=== PATIENT | male | born 1975 | race Caucasian/White ===

== ENCOUNTER 2022-01-08 10:57 | Inpatient (IN) | payer BC ==
[2022-01-08] MEDS ORDERED: LABETALOL 5 MG/ML VIAL MDV IVP STA (11:30)
[2022-01-08 12:16] LABS: Basophils # (A) 0.1 k/uL (0-0.2); Basophils % (A) 1 %; Eosinophils # (A) 0.1 k/uL (0-0.7); Eosinophils % (A) 1 %; HCT 43.9 % (39.0-53.0); HGB 13.7 gm/dL (13.0-17.5); Hypochromasia Moderate; Lymphocytes # (A) 0.8 k/uL (1.0-4.8); Lymphocytes % (A) 7 %; MCH 29.4 pg (25.0-35.0); MCHC 31.2 g/dL (31.0-37.0); MCV 94.2 fL (80.0-100.0); Monocytes # (A) 0.7 k/uL (0-1.0); Monocytes % (A) 6 %; Neutrophils # (A) 10.5 k/uL (1.3-7.7); Neutrophils % (A) 85 %; Platelet Count 378 k/uL (150-450); RBC 4.67 m/uL (4.30-5.90); RDW 14.8 % (11.5-15.5); WBC 12.4 k/uL (3.8-10.6)
[2022-01-08 12:27] LABS: INR 1.3 (<1.2); Partial Thromboplastin Time 22.2 sec (22.0-30.0); Prothrombin Time 13.5 sec (9.0-12.0)
[2022-01-08 12:28] LABS: Albumin 3.6 g/dL (3.5-5.0); Calcium 8.7 mg/dL (8.4-10.2); Potassium 4.3 mmol/L (3.5-5.1); Total Bilirubin 1.8 mg/dL (0.2-1.3); Total Protein 6.3 g/dL (6.3-8.2)
[2022-01-08 13:06] LABS: Appearance,Urine Clear (Clear); Bilirubin,Urine Negative (Negative); Blood,Urine Trace (Negative); Color,Urine Yellow; Glucose,Urine (UA) Negative (Negative); Granular Casts,Urine 1 /lpf (0); Hyaline Casts,Urine 16 /lpf (0-2); Ketones,Urine Negative (Negative); Leukocyte Esterase,Urine Negative (Negative); Mucus,Urine Rare /hpf; Nitrite,Urine Negative (Negative); Protein,Urine 3+ (Negative); RBC,Urine 1 /hpf (0-5); Specific Gravity,Urine 1.015 (1.001-1.035); Squamous Epithelial Cell,Urine <1 /hpf (0-4); Urobilinogen,Urine <2.0 mg/dL (<2.0); WBC,Urine 2 /hpf (0-5)
--- NOTE | 2022-01-08 13:25 | ED ---
General Adult HPI - General Chief complaint: Abdominal Pain Stated complaint: ABD pain SOB Time Seen by Provider: 01/08/22 11:06 Source: patient, RN notes reviewed Mode of arrival: ambulatory Limitations: no limitations - History of Present Illness Initial comments: 46-year-old male presents emergency Department with chief complaint increase abdominal pain. Patient states hishas abdominal bloating, distention and pain. He states worse when he stands up and moves. He states is no pain at rest patient noted have hypertension states she does have a history has not been medications in over 5 years. He states he does have some shortness of breath, m ild chest discomfort. Denies any change of bowel habits including diarrhea, constipation, melena, galdamez stools, dysuria, hematuria. - Related Data Allergies Allergy/AdvReac Type Severity Reaction Status Date / Time No Known Allergies Allergy Verified 01/08/22 11:02 Review of Systems ROS Statement: Those systems with pertinent positive or pertinent negative responses have been documented in the HPI. ROS Other: All systems not noted in ROS Statement are negative. Past Medical History Past Medical History: No Reported History History of Any Multi-Drug Resistant Organisms: None Reported Past Surgical History: No Surgical Hx Reported Past Psychological History: No Psychological Hx Reported Smoking Status: Former smoker Past Alcohol Use History: Occasional Past Drug Use History: None Reported General Exam Limitations: no limitations General appearance: alert, in no apparent distress Head exam: Present: atraumatic, normocephalic, normal inspection Eye exam: Present: normal appearance, PERRL, EOMI. Absent: scleral icterus, conjunctival injection, periorbital swelling ENT exam: Present: normal exam, normal oropharynx, mucous membranes moist Neck exam: Present: normal inspection. Absent: tenderness, meningismus, lym phadenopathy Respiratory exam: Present: normal lung sounds bilaterally. Absent: respiratory distress, wheezes, rales, rhonchi, stridor Cardiovascular Exam: Present: normal rhythm, tachycardia, normal heart sounds. Absent: systolic murmur, diastolic murmur, rubs, gallop, clicks GI/Abdominal exam: Present: soft, distended, tenderness, normal bowel sounds. Absent: guarding, rebound, rigid Neurological exam: Present: alert Skin exam: Present: warm, dry, intact, normal color. Absent: rash Course Vital Signs 08/29/22 08/29/22 08/29/22 10:58 12:30 13:30 Temperature 98.4 F Pulse Rate 127 H 91 92 Respiratory 22 20 20 Rate Blood Pressure 212/176 162/110 169/118 O2 Sat by Pulse 97 97 97 Oximetry Procedures - [place] Protocol (Time Out) Nurse: Jerri Phoenix Medical Decision Making - Medical Decision Making 46-year-old presented for abdominal pain. Patient on a severe hypertensive source patient denies any blood pressure medication several years. Patient is found to have elevated troponin 0.083 with no evidence of OR on EKG. Patient CT does not reveal any acute findings possible anasarca patient will be admitted for cardiology evaluation, ACS , hypertension. - Lab Data Result diagrams: 01/08/22 11:54 01/08/22 11:54 Lab Results 01/08/22 01/08/22 01/08/22 Range/Units 11:54 11:54 11:54 WBC 12.4 H (3.8-10.6) k/uL RBC 4.67 (4.30-5.90) m/uL Hgb 13.7 (13.0-17.5) gm/dL Hct 43.9 (39.0-53.0) % MCV 94.2 (80.0-100.0) fL MCH 29.4 (25.0-35.0) pg MCHC 31.2 (31.0-37.0) g/dL RDW 14.8 (11.5-15.5) % Plt Count 378 (150-450) k/uL MPV 8.0 Neutrophils % 85 % Lymphocytes % 7 % Monocytes % 6 % Eosinophils % 1 % Basophils % 1 % Neutrophils # 10.5 H (1.3-7.7) k/uL Lymphocytes # 0.8 L (1.0-4.8) k/uL Monocytes # 0.7 (0-1.0) k/uL Eosinophils # 0.1 (0-0.7) k/uL Basophils # 0.1 (0-0.2) k/uL Hypochromasia Moderate PT 13.5 H (9.0-12.0) sec INR 1.3 H (<1.2) APTT 22.2 (22.0-30.0) sec Sodium (137-145) mmol/L Potassium (3.5-5.1) mmol/L Chloride (98-107) mmol/L Carbon Dioxide (22-30) mmol/L Anion Gap mmol/L BUN (9-20) mg/dL Creatinine (0.66-1.25) mg/dL Est GFR (CKD-EPI)AfAm (>60 ml/min/1.73 sqM) Est GFR (CKD-EPI)NonAf (>60 ml/min/1.73 sqM) Glucose (74-99) mg/dL Plasma Lactic Acid Luis Alberto (0.7-2.0) mmol/L Calcium (8.4-10.2) mg/dL Total Bilirubin (0.2-1.3) mg/dL AST (17-59) U/L ALT (4-49) U/L Alkaline Phosphatase (38-126) U/L Troponin I (0.000-0.034) ng/mL Total Protein (6.3-8.2) g/dL Albumin (3.5-5.0) g/dL Amylase (30-110) U/L Lipase (23-300) U/L Urine Color Yellow Urine Appearance Clear (Clear) Urine pH 6.0 (5.0-8.0) Ur Specific [place] 1.015 (1.001-1.035) Urine Protein 3+ H (Negative) Urine Glucose (UA) Negative (Negative) Urine Ketones Negative (Negative) Urine Blood Trace H (Negative) Urine Nitrite Negative (Negative) Urine Bilirubin Negative (Negative) Urine Urobilinogen <2.0 (<2.0) mg/dL Ur Leukocyte Esterase Negative (Negative) Urine RBC 1 (0-5) /hpf Urine WBC 2 (0-5) /hpf Ur Squamous Epith Cells <1 (0-4) /hpf Hyaline Casts 16 H (0-2) /lpf Granular Casts 1 (0) /lpf Urine Mucus Rare H (None) /hpf 01/08/22 01/08/22 01/08/22 Range/Units 11:54 11:54 11:54 WBC (3.8-10.6) k/uL RBC (4.30-5.90) m/uL Hgb (13.0-17.5) gm/dL Hct (39.0-53.0) % MCV (80.0-100.0) fL MCH (25.0-35.0) pg MCHC (31.0-37.0) g/dL RDW (11.5-15.5) % Plt Count (150-450) k/uL MPV Neutrophils % % Lymphocytes % % Monocytes % % Eosinophils % % Basophils % % Neutrophils # (1.3-7.7) k/uL Lymphocytes # (1.0-4.8) k/uL Monocytes # (0-1.0) k/uL Eosinophils # (0-0.7) k/uL Basophils # (0-0.2) k/uL Hypochromasia PT (9.0-12.0) sec INR (<1.2) APTT (22.0-30.0) sec Sodium 131 L (137-145) mmol/L Potassium 4.3 (3.5-5.1) mmol/L Chloride 97 L (98-107) mmol/L Carbon Dioxide 19 L (22-30) mmol/L Anion Gap 15 mmol/L BUN 20 (9-20) mg/dL Creatinine 1.37 H (0.66-1.25) mg/dL Est GFR (CKD-EPI)AfAm 71 (>60 ml/min/1.73 sqM) Est GFR (CKD-EPI)NonAf 62 (>60 ml/min/1.73 sqM) Glucose 151 H (74-99) mg/dL Plasma Lactic Acid Luis Alberto 2.5 H* (0.7-2.0) mmol/L Calcium 8.7 (8.4-10.2) mg/dL Total Bilirubin 1.8 H (0.2-1.3) mg/dL AST 139 H (17-59) U/L ALT 151 H (4-49) U/L Alkaline Phosphatase 73 (38-126) U/L Troponin I 0.083 H* (0.000-0.034) ng/mL Total Protein 6.3 (6.3-8.2) g/dL Albumin 3.6 (3.5-5.0) g/dL Amylase 36 (30-110) U/L Lipase 322 H (23-300) U/L Urine Color Urine Appearance (Clear) Urine pH (5.0-8.0) Ur Specific [place] (1.001-1.035) Urine Protein (Negative) Urine Glucose (UA) (Negative) Urine Ketones (Negative) Urine Blood (Negative) Urine Nitrite (Negative) Urine Bilirubin (Negative) Urine Urobilinogen (<2.0) mg/dL Ur Leukocyte Esterase (Negative) Urine RBC (0-5) /hpf Urine WBC (0-5) /hpf Ur Squamous Epith Cells (0-4) /hpf Hyaline Casts (0-2) /lpf Granular Casts (0) /lpf Urine Mucus (None) /hpf Disposition Clinical Impression: Hypertensive emergency, NSTEMI (non-ST elevated myocardial infarction), Abdominal pain Disposition: ADMITTED IP TO THIS HOSP Condition: Poor Referrals: None,Stated [Primary Care Provider] - 1-2 days Time of Disposition: 13:32
--- NOTE | 2022-01-08 13:26 | CT ---
EXAMINATION TYPE: CT abdomen pelvis w con DATE OF EXAM: 01/08/2022 COMPARISON: None HISTORY: Abdominal pain and distention CT DLP: 4466 mGycm CONTRAST: CT scan of the abdomen and pelvis is performed without Oral Contrast and with IV Contrast, patient in jected with 100 mL of Isovue 300. FINDINGS: LUNG BASES-: No visible nodule. No infiltrate. Small right-sided pleural effusion noted. LIVER/GB: No calcified gallstones. No space occupying hepatic lesion. Biliary tree is of normal ca liber. PANCREAS: No inflammation. No distinct mass. SPLEEN: No splenic enlargement. No lesion seen. ADRENALS: No nodule. No thickening. KIDNEYS/BLADDER: No hydronephrosis. No nephrolithiasis. No distinct renal mass. Urinary bladder g rossly unremarkable. BOWEL: Normal appendix. Normal bowel caliber. No inflammation. GENITAL ORGANS: No gross abnormality. LYMPH NODES: No greater than 1cm abdominal or pelvic lymph nodes are appreciated. AORTA: No significant abnormality. OSSEOUS STRUCTURES: No significant abnormality is seen. OTHER: Small amount of ascites and subcutaneous edema may reflect developing anasarca. Correlate clin ically. IMPRESSION: 1. No acute intra-abdominal process appreciated. 2. Findings as noted above may reflect developing anasarca. Correlate clinically. 1.
[2022-01-08] MEDS ORDERED: NITROGLYCERIN SL TABS 0.4 MG TAB SUBLINGUAL PRN (13:33)
[2022-01-08] MEDS ORDERED: HEPARIN SODIUM 1,000 UN/ML (10ML VL) IV ONE (13:33)
[2022-01-08] MEDS ORDERED: HEPARIN SOD,PORK IN 0.45% NACL 25,000 UNIT in 0.45% NACL 1 250ML.BAG IV SCH (13:45)
[2022-01-08] MEDS: LABETALOL 5 MG/ML VIAL MDV IVP PRN ×2 (15:10→19:48)
[2022-01-08] MEDS ORDERED: HYDROmorphone 0.5 MG/0.5 ML SYRINGE IVP PRN (15:29)
[2022-01-08] MEDS: cloNIDine HCL 0.1 MG TAB PO SCH ×2 (16:22→22:16)
[2022-01-08] MEDS: cloNIDine HCL 0.1 MG TAB PO PRN (19:47)
[2022-01-08] MEDS: PANTOPRAZOLE 40 MG/10 ML VIAL IVP SCH (19:53)
[2022-01-08] MEDS: HEPARIN SODIUM 1,000 UN/ML (10ML VL) IV PRN (20:54)
--- NOTE | 2022-01-09 01:55 | HP ---
HISTORY AND PHYSICAL CHIEF COMPLAINTS: Abdominal discomfort and hypertension. HISTORY OF PRESENT ILLNESS: This 46-year-old gentleman who lives [facility], is actually in [place] for work. The patient is complaining of abdominal pain which is rather diffuse in nature. The patient came to [facility]. Blood pressure found to be extremely elevated at 194/134. The patient also had multiple lab abnormalities. Lactic acid also elevated. Troponins also indeterminate. The patient also has remote history of EtOH and CT scan abdomen pelvis was done which was reviewed personally by me, showed small amount of ascites and subcutaneous edema. There is no history of fever, rigors, or chills at this time. PAST MEDICAL HISTORY: History of GERD and hypertension. HOME MEDICATIONS: None. ALLERGIES: None. FAMILY HISTORY: History of cancer and myocardial infarction. SOCIAL HISTORY: Previous history of smoking and alcohol. REVIEW OF SYSTEMS: A 14-point review is negative except as mentioned earlier. PHYSICAL EXAMINATION: VITAL SIGNS: Pulse is 90, blood pressure 194/70, and respirations 20. HEENT: Conjunctivae normal. Oral mucosa moist. NECK: No jugular venous distention. No carotid bruit. CARDIOVASCULAR: S1, S2 muffled. RESPIRATIONS: Few scattered rhonchi. ABDOMEN: Soft, obese, nontender. No mass palpable. Flanks are dull. LEGS: No edema, no cyanosis and diffusely weak. SKIN: No ulcer. JOINTS: No active deformity. LABS: Reviewed, WBC 12.4, rest of the labs are reviewed. ASSESSMENT: 1. Abdominal pain, possible ascites and chronic liver disease, possible hepatitis. 2. Possible acute pancreatitis. 3. Remote history of EtOH. 4. Accelerated hypertension and hypertensive urgency. 5. Gastroesophageal reflux disease. 6. Elevated troponin. RECOMMENDATIONS: This 46-year-old gentleman with multiple complex medical issues, we will monitor the patient closely. I will recommend continuing the current management and treatment, otherwise I would recommend repeat labs, cardiology consultation and surgical evaluation also. Prognosis guarded because of multiple complex medical issues, I recommend alcohol cessation as well. See orders for details. MMODL / IJN: [id number] / MTDD
[2022-01-09] MEDS: cloNIDine HCL 0.1 MG TAB PO PRN ×2 (02:56→08:27)
[2022-01-09] MEDS: LABETALOL 5 MG/ML VIAL MDV IVP PRN (02:56)
[2022-01-09 03:18] LABS: Basophils # (A) 0.1 k/uL (0-0.2); Basophils % (A) 1 %; Eosinophils # (A) 0.1 k/uL (0-0.7); Eosinophils % (A) 1 %; HCT 41.3 % (39.0-53.0); Hypochromasia Moderate; Lymphocytes # (A) 1.2 k/uL (1.0-4.8); Lymphocytes % (A) 11 %; MCH 30.5 pg (25.0-35.0); MCHC 31.5 g/dL (31.0-37.0); MCV 96.9 fL (80.0-100.0); Mean Platelet Volume 8.3; Monocytes # (A) 0.6 k/uL (0-1.0); Monocytes % (A) 6 %; Neutrophils # (A) 7.9 k/uL (1.3-7.7); Neutrophils % (A) 78 %; Platelet Count 332 k/uL (150-450); RBC 4.26 m/uL (4.30-5.90); RDW 15.1 % (11.5-15.5); WBC 10.2 k/uL (3.8-10.6)
[2022-01-09] MEDS: HEPARIN SODIUM 1,000 UN/ML (10ML VL) IV PRN (03:32)
[2022-01-09 03:38] LABS: ALT 140 U/L (4-49); AST 107 U/L (17-59); African American GFR (CKD) 60 (>60 ml/min/1.73 sqM); Albumin 3.1 g/dL (3.5-5.0); Alkaline Phosphatase 66 U/L (38-126); Amylase 35 U/L (30-110); Anion Gap 11 mmol/L; Blood Urea Nitrogen 22 mg/dL (9-20); Calcium 8.7 mg/dL (8.4-10.2); Carbon Dioxide 24 mmol/L (22-30); Chloride 98 mmol/L (98-107); Glucose 100 mg/dL (74-99); Lipase 395 U/L (23-300); Non-African American GFR(CKD) 52 (>60 ml/min/1.73 sqM); Potassium 4.7 mmol/L (3.5-5.1); Sodium 133 mmol/L (137-145); Total Bilirubin 1.2 mg/dL (0.2-1.3); Total Protein 5.6 g/dL (6.3-8.2)
[2022-01-09] MEDS: ASPIRIN 81 MG PO SCH (08:27)
[2022-01-09] MEDS: PANTOPRAZOLE 40 MG/10 ML VIAL IVP SCH ×2 (08:27→21:04)
[2022-01-09] MEDS ORDERED: amLODIPine 10 MG TAB PO SCH (09:00)
[2022-01-09] MEDS ORDERED: ASPIRIN 325 MG TAB PO SCH (09:00)
[2022-01-09] MEDS ORDERED: VALSARTAN 80 MG TAB PO SCH (09:00)
[2022-01-09] MEDS: LABETALOL 100 MG TAB PO SCH ×2 (09:28→21:04)
[2022-01-09 09:47] LABS: Chol/HDL Ratio 5.75 Ratio; LDL Cholesterol,Calculated 98.4 mg/dL (0.0-131.0); VLDL Calculation 15.64 mg/dL (5.00-40.00)
--- NOTE | 2022-01-09 11:10 | P.CRDCN ---
History of Present Illness History of present illness: This is a pleasant 46-year-old male past medical history significant for hypertension, former cigarette smoker quit 20+ years ago, alcohol use (former heavy alcohol use, now drinks about 6 beers/week), former prescription drug abuse quit 10 years ago. 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 We have been asked to see in consultation for elevated troponin, hypertension emergency. Patient presents emergency department with complaint of abdominal discomfort, abdominal bloating and distention, states he noticed it worsening over the past 2-3 days. He does endorse some mild shortness of breath with movement/activities which he attributes to his abdominal discomfort and being sedentary. He denies any chest pain, palpitations, lightheadedness, dizziness, syncope or near syncope. He denies any symptoms of orthopnea or PND, or LE edema. He denies any history of ME, Stroke, CAD, Diabetes, dyslipidemia, or kidney disease. Family history includes father had an ME in his late 50s with stent placements. States his mother's side of the family has a history of MIs in the past. On admission, patient was found to be hypertensive with SBP 160s-200s, also sinus tachycardic with HR 120s. DIAGNOSTICS * EKG reveals sinus tachycardia, 122, non specific T wave abnormalities in leads I, aVL. * Telemetry tracings indicate sinus rhythm in 70s-90s * CT abdomen/pelvis- no acute intra-abdominal process reported. Small amount of ascites and subcutaneous edema. * Laboratory reviewed, WBC 12.4, hemoglobin 13.7, platelets 378, sodium 131, potassium 4.3, BUN 20, serum creatinine 1.37, lactate 2.5, AST 139, PLT 121, troponin 0.08 0.09 0.099 , lipase 322, T bili 1.8, pro BNP 4110 * Current home cardiac medications include none REVIEW OF SYSTEMS At the time of my exam: CONSTITUTIONAL: Denies fever or chills. CARDIOVASCULAR: Denies chest pain, shortness of breath, orthopnea, PND or palpitations. RESPIRATORY: Denies cough. GASTROINTESTINAL: Denies abdominal pain, diarrhea, constipation, nausea or vomiting. MUSCULOSKELETAL: Denies myalgias. NEUROLOGIC: Denies numbness, tingling, headacbe or weakness. ENDOCRINE: Denies fatigue, weight change, polydipsia or polyurina. GENITOURINARY: Denies burning, hematuria or urgency with micturation. HEMATOLOGIC: Denies history of anemia or bleeding. PHYSICAL EXAMINATION Vitals reviewed CONSTITUTIONAL: No apparent distress. HEENT: Head is normocephalic. Pupils are equal, round. Sclerae anicteric. Mucous membranes of the mouth are moist. No JVD. CHEST EXAMINATION: Lungs are clear to auscultation. No chest wall tenderness is noted on palpation or with deep breathing. HEART EXAMINATION: Regular rate and rhythm. S1, S2 heard. No murmurs, gallops or rub. ABDOMEN: Distended, non-tender. Positive bowel sounds. EXTREMITIES: 2+ peripheral pulses, no lower extremity edema and no calf tenderness. NEUROLOGIC EXAMINATION: Patient is awake, alert and oriented x3. ASSESSMENT Hypertensive urgency Elevated troponin, likely secondary to above Abdominal discomfort, bloating, distention Elevated liver enzymes Elevated lipase Lactic acidosis Acute kidney injury Sinus tachycardia Former nicotine dependence Former alcohol abuse Family history of coronary artery disease PLAN Obtain 2D echocardiogram and doppler study to assess cardiac structure and function. Stop IV heparin Start amlodipine 10 mg daily, valsartan 80 mg daily Short-term labetalol 100 mg BID, likely decrease/wean off Check TSH Monitor renal function and electrolytes Further recommendations based on clinical course Nurse practitioner note has been reviewed by physician. Signing provider agrees with the documented findings, assessment, and plan of care. Past Medical History Past Medical History: GERD/Reflux, Hypertension Additional Past Medical History / Comment(s): Pt took self off htn medications approximately 5 yrs ago, occasional low back pain. History of Any Multi-Drug Resistant Organisms: None Reported Past Surgical History: Ear Surgery Additional Past Surgical History / Comment(s): Myringotomies/tubes x 3 Past Anesthesia/Blood Transfusion Reactions: No Reported Reaction Smoking Status: Former smoker - Past Family History Father Family Medical History: Cancer, Myocardial Infarction (ME) Mother Family Medical History: Hypertension Medications and Allergies Home Medications Medication Instructions Recorded Confirmed Type No Known Home Medications 01/08/22 01/08/22 History Allergies Allergy/AdvReac Type Severity Reaction Status Date / Time No Known Allergies Allergy Verified 01/08/22 13:51 Physical Exam Vitals: Vital Signs Temp Pulse Pulse Resp BP BP Pulse Ox 01/09/22 05:31 144/100 01/09/22 02:53 98.1 F 85 16 158/110 98 01/09/22 00:00 98.0 F 82 16 149/102 95 01/08/22 22:15 135/85 01/08/22 20:00 98.1 F 84 16 138/106 96 01/08/22 19:41 94 155/115 01/08/22 18:15 98.0 F 95 16 181/103 95 01/08/22 17:10 82 20 172/110 97 01/08/22 16:00 84 20 167/119 95 01/08/22 15:13 90 20 194/134 94 L 01/08/22 14:07 95 20 182/131 95 01/08/22 13:30 92 20 169/118 97 01/08/22 12:30 91 20 162/110 97 01/08/22 10:58 98.4 F 127 H 22 212/176 97 Intake and Output 01/08/22 01/09/22 01/09/22 22:59 06:59 14:59 Intake Total 628.347 106.314 Balance 628.347 106.314 Intake: IV 20 Invasive Line 1 20 Intake, IV Titration 68.347 106.314 Amount Heparin Sod,Pork in 0.45% 68.347 106.314 NaCl 25,000 unit In 0.45 % NaCl 1 250ml.bag @ 5. 818 UNITS/KG/HR 10.001 mls/hr IV .Q24H [facility] Rx#: [id number] Oral 540 Other: Voiding Method Toilet Toilet # Voids 2 Weight 171.9 kg Results 01/09/22 02:49 01/09/22 02:49 Cardiac Enzymes 01/08/22 01/08/22 01/08/22 Range/Units 11:54 11:54 13:59 AST 139 H (17-59) U/L Troponin I 0.083 H* 0.092 H* (0.000-0.034) ng/mL 01/08/22 01/09/22 Range/Units 17:04 02:49 AST 107 H (17-59) U/L Troponin I 0.099 H* (0.000-0.034) ng/mL Coagulation 01/08/22 01/08/22 01/08/22 Range/Units 11:54 13:59 19:52 PT 13.5 H (9.0-12.0) sec APTT 22.2 22.3 28.1 (22.0-30.0) sec 01/09/22 Range/Units 02:49 PT (9.0-12.0) sec APTT 36.8 H (22.0-30.0) sec CBC 01/08/22 01/09/22 Range/Units 11:54 02:49 WBC 12.4 H 10.2 (3.8-10.6) k/uL RBC 4.67 4.26 L (4.30-5.90) m/uL Hgb 13.7 13.0 (13.0-17.5) gm/dL Hct 43.9 41.3 (39.0-53.0) % Plt Count 378 332 (150-450) k/uL Comprehensive Metabolic Panel 01/08/22 01/09/22 Range/Units 11:54 02:49 Sodium 131 L 133 L (137-145) mmol/L Potassium 4.3 4.7 (3.5-5.1) mmol/L Chloride 97 L 98 (98-107) mmol/L Carbon Dioxide 19 L 24 (22-30) mmol/L BUN 20 22 H (9-20) mg/dL Creatinine 1.37 H 1.57 H (0.66-1.25) mg/dL Glucose 151 H 100 H (74-99) mg/dL Calcium 8.7 8.7 (8.4-10.2) mg/dL AST 139 H 107 H (17-59) U/L ALT 151 H 140 H (4-49) U/L Alkaline Phosphatase 73 66 (38-126) U/L Total Protein 6.3 5.6 L (6.3-8.2) g/dL Albumin 3.6 3.1 L (3.5-5.0) g/dL Current Medications Generic Name Dose Route Start Last Admin Trade Name Freq PRN Reason Stop Dose Admin Aspirin 325 mg 01/09/22 09:00 Aspirin 325 Mg Tab PO DAILY AYANA Clonidine 0.1 mg 01/08/22 15:30 01/09/22 02:56 Clonidine Hcl 0.1 Mg Tab PO 0.1 mg Q4HR PRN Administration Hypertension Clonidine 0.1 mg 01/08/22 16:00 01/08/22 22:16 Clonidine Hcl 0.1 Mg Tab PO 0.1 mg TID AYANA Administration Heparin Sodium (Porcine) 0 unit 01/08/22 20:45 01/09/22 03:32 Heparin Sodium 1,000 Un/Ml (10ml Vl) IV 4,000 unit PER PROTOCOL PRN Administration Low PTT Protocol Hydromorphone HCl 0.5 mg 01/08/22 15:29 Hydromorphone 0.5 Mg/0.5 Ml Syringe IVP Q6HR PRN Severe Pain (Scale 7 to 10) Heparin Sodium/Sodium Chloride 250 mls @ 10.001 mls/hr 01/08/22 13:45 01/09/22 03:33 25,000 unit/ Sodium Chloride IV 11.3 units/kg/hr .Q24H AYANA 19.425 mls/hr Titration Protocol 5.818 UNITS/KG/HR Labetalol HCl 20 mg 01/08/22 13:35 01/09/22 02:56 Labetalol 5 Mg/Ml Vial Mdv IVP 20 mg Q3HR PRN Administration Hypertension Nitroglycerin 0.4 mg 01/08/22 13:33 Nitroglycerin Sl Tabs 0.4 Mg Tab SUBLINGUAL Q5M PRN Chest Pain Pantoprazole Sodium 40 mg 01/08/22 21:00 01/08/22 19:53 Pantoprazole 40 Mg/10 Ml Vial IVP 40 mg BID AYANA Administration Intake and Output 01/08/22 01/09/22 01/09/22 22:59 06:59 14:59 Intake Total 628.347 106.314 Balance 628.347 106.314 Intake: IV 20 Invasive Line 1 20 Intake, IV Titration 68.347 106.314 Amount Heparin Sod,Pork in 0.45% 68.347 106.314 NaCl 25,000 unit In 0.45 % NaCl 1 250ml.bag @ 5. 818 UNITS/KG/HR 10.001 mls/hr IV .Q24H [facility] Rx#: [id number] Oral 540 Other: Voiding Method Toilet Toilet # Voids 2 Weight 171.9 kg 01/09/22 02:49 01/09/22 02:49
[2022-01-09] MEDS: VALSARTAN 80 MG TAB PO SCH (11:40)
--- NOTE | 2022-01-09 13:08 | CA ---
Transthoracic Echo Report Name: Jasen Hernandez Age: 46 Gender: M : 1975 Exam Date: 01/09/2022 10:02 Exam Location: [place] [facility] Ht (in): 71 Wt (lb): 378 Ordering Physician: Henok Butler Attending/Referring Phys: [id number], Luke [employer] Executive Latoya Carver RDCS Procedure CPT: Indications: nstemi Cardiac Hx: Htn Technical Quality: Technically difficult study Contrast 1: Lumason Total Dose (mL): 1 Contrast 2: Total Dose (mL): MEASUREMENTS (Male / Female) Normal Values 2D ECHO LV Diastolic Diameter PLAX 5.5 cm 4.2 - 5.9 / 3.9 - 5.3 cm LV Systolic Diameter PLAX 3.9 cm IVS Diastolic Thickness 1.4 cm 0.6 - 1.0 / 0.6 - 0.9 cm LVPW Diastolic Thickness 1.6 cm 0.6 - 1.0 / 0.6 - 0.9 cm LV Relative Wall Thickness 0.6 RV Internal Dim ED PLAX 3.7 cm M-MODE LV Diastolic Diameter MM 5.6 cm 4.2 - 5.9 / 3.9 - 5.3 cm LV Systolic Diameter MM 4.5 cm IVS Diastolic Thickness MM 1.9 cm 0.6 - 1.0 / 0.6 - 0.9 cm LVPW Diastolic Thickness MM 1.8 cm 0.6 - 1.0 / 0.6 - 0.9 cm LV Relative Wall Thickness MM 0.7 0.24 - 0.42 / 0.22 - 0.42 LV Mass Index MM 183.4 g/m??? 49 - 115 / 43 - 95 g/m??? Aortic Root Diameter MM 3.5 cm LA Systolic Diameter MM 4.7 cm LA Ao Ratio MM 1.3 DOPPLER MV Area PHT 3.7 cm??? Mitral E Point Velocity 83.4 cm/s Mitral A Point Velocity 70.5 cm/s Mitral E to A Ratio 1.2 MV Deceleration Time 204.2 ms TR Peak Velocity 87.8 cm/s TR Peak Gradient 3.1 mmHg Right Ventricular Systolic Press 8.1 mmHg PV Peak Velocity 76.6 cm/s PV Peak Gradient 2.3 mmHg PI Peak Gradient 13.2 mmHg FINDINGS Left Ventricle Severely increased left ventricular mass. Moderately increased septal wall thickness. Severely increased posterior wall thickness. Moderately decreased fractional shortening. Severely decreased midwall fractional shortening. Severely increased left ventricular relative wall thickness. Left ventricular ejection fraction is estimated at 30 %. TDS Lumason used. Right Ventricle Right ventricle not well visualized. Right Atrium Right atrium not well visualized. Left Atrium Left atrium not well visualized. Mitral Valve Mitral valve not well visualized. Aortic Valve Aortic valve not well visualized. Tricuspid Valve Tricuspid valve not well visualized. Pulmonic Valve Pulmonic valve not well visualized. Pericardium Small pericardial effusion. Aorta Aortic root and proximal ascending aorta not well visualized. CONCLUSIONS Technically difficult study Severe LVH Left ventricular EF 30% with global hypokinesis Small pericardial effusion without evidence of tamponade Previewed by: Dr. Simeon Shelley DO (Electronically Signed) Final Date: 09 January 2022 13:08
--- NOTE | 2022-01-09 14:56 | P.GSCN ---
History of Present Illness Consult date: 01/09/22 History of present illness: CHIEF COMPLAINT: Abdominal pain HISTORY OF PRESENT ILLNESS: This is a 46-year-old male presented with lower abdominal pain for the past 3 days. He reports the pain was worse with walking and he had been feeling bloated and distended.. He denies any nausea or vomiting. He denies any change in bowel habits. He denies any blood in his sto ols. He does have a history of alcohol use. He reports that he is not drinking as heavily as he used to. He has still about 6 beers total during the week. Patient on admission had hypertensive emergency was also found to have elevated troponin. Patient evaluated by cardiology service who felt that the troponin elevation was likely due to his elevated blood pressure. Patient presents is not been following with Dr. weiss. He had a computed tomography scan abdomen and pelvis showing no acute intra-abdominal process. Findings noted may reflect developing anasarca and there was evidence of small amount of ascites. Patient seen and examined with Dr. bradfodr PAST MEDICAL HISTORY: Hypertension PAST SURGICAL HISTORY: None MEDICATIONS: See list. ALLERGIES: See list. SOCIAL HISTORY: No illicit drug use. REVIEW OF SYSTEMS: CONSTITUTIONAL: Denies fever or chills. HEENT: Denies blurred vision, vision changes, or eye pain. Denies hemoptysis CARDIOVASCULAR: Denies chest pain or pressure. RESPIRATORY: No shortness of breath. GASTROINTESTINAL: See HPI for pertinent findings HEMATOLOGIC: Denies bleeding disorders. GENITOURINARY: Denies any blood in urine or increased urinary frequency. SKIN: Denies pruitis. Denies rash. PHYSICAL EXAM: VITAL SIGNS: Reviewed GENERAL: Well-developed in no acute distress. HEENT: No sclera icterus. Extraocular movements grossly intact. Moist buccal mucosa. Head is atraumatic, normocephalic. No nasal drainage. ABDOMEN: Soft. Obese. Nondistended. Nontender. No pain with palpation right upper quadrant NEUROLOGIC: Alert and oriented. Cranial nerves II through XII grossly intact. LABORATORY DATA: WBC 12.4 down to 10.2 Hgb 13 platelets 332 Sodium 133 potassium 4.7 creatinine 1.57 Total bilirubin 1.8 down to 1.2 AST 139 down to 107 ALT 151 down to 140 Alk phos 66 Elevated troponin BNP 4110 Lipase 395 IMAGING: Computed tomography scan abdomen and pelvis no acute intra-abdominal process appreciated. Small amount ascites and subcutaneous edema may reflect developing anasarca no gallstones. Biliary tree of normal caliber. ASSESSMENT: 1. Lower Abdominal pain with bloating 2. Abdominal ascites 3. Hypertensive emergency followed by cardiology 4. History of alcohol abuse 5. Elevated LFTs and total bilirubin. Labs trending down PLAN: -Recommend colonoscopy outpatient when medically stable -Medicine service has ordered abdominal ultrasound with possible paracentesis regarding abdominal ascites -Counseled patient on abstaining from alcohol -BP management per cardiology Thank you for this consultation Physician Skiver Machine Operator note has been reviewed by physician. Signing provider agrees with the documented findings, assessment, and plan of care. Past Medical History Past Medical History: GERD/Reflux, Hypertension Additional Past Medical History / Comment(s): Pt took self off htn medications approximately 5 yrs ago, occasional low back pain. History of Any Multi-Drug Resistant Organisms: None Reported Past Surgical History: Ear Surgery Additional Past Surgical History / Comment(s): Myringotomies/tubes x 3 Past Anesthesia/Blood Transfusion Reactions: No Reported Reaction Smoking Status: Former smoker - Past Family History Father Family Medical History: Cancer, Myocardial Infarction (ID) Mother Family Medical History: Hypertension Medications and Allergies Home Medications Medication Instructions Recorded Confirmed Type No Known Home Medications 01/08/22 01/08/22 History Allergies Allergy/AdvReac Type Severity Reaction Status Date / Time No Known Allergies Allergy Verified 01/08/22 13:51 Surgical - Exam Vital Signs Temp Pulse Resp BP Pulse Ox 98.4 F 127 H 22 212/176 97 01/08/22 10:58 01/08/22 10:58 01/08/22 10:58 01/08/22 10:58 01/08/22 10:58 Results - Labs 01/09/22 02:49 01/09/22 02:49 Abnormal Lab Results - Last 24 Hours (Table) 01/08/22 01/08/22 01/08/22 Range/Units 11:54 11:54 11:54 WBC 12.4 H (3.8-10.6) k/uL RBC (4.30-5.90) m/uL Neutrophils # 10.5 H (1.3-7.7) k/uL Lymphocytes # 0.8 L (1.0-4.8) k/uL PT 13.5 H (9.0-12.0) sec INR 1.3 H (<1.2) APTT (22.0-30.0) sec Sodium (137-145) mmol/L Chloride (98-107) mmol/L Carbon Dioxide (22-30) mmol/L BUN (9-20) mg/dL Creatinine (0.66-1.25) mg/dL Glucose (74-99) mg/dL Plasma Lactic Acid Luis Alberto (0.7-2.0) mmol/L Total Bilirubin (0.2-1.3) mg/dL AST (17-59) U/L ALT (4-49) U/L Troponin I (0.000-0.034) ng/mL Total Protein (6.3-8.2) g/dL Albumin (3.5-5.0) g/dL HDL Cholesterol (40.00-60.00) mg/dL Lipase (23-300) U/L Urine Protein 3+ H (Negative) Urine Blood Trace H (Negative) Hyaline Casts 16 H (0-2) /lpf Urine Mucus Rare H (None) /hpf 01/08/22 01/08/22 01/08/22 Range/Units 11:54 11:54 11:54 WBC (3.8-10.6) k/uL RBC (4.30-5.90) m/uL Neutrophils # (1.3-7.7) k/uL Lymphocytes # (1.0-4.8) k/uL PT (9.0-12.0) sec INR (<1.2) APTT (22.0-30.0) sec Sodium 131 L (137-145) mmol/L Chloride 97 L (98-107) mmol/L Carbon Dioxide 19 L (22-30) mmol/L BUN (9-20) mg/dL Creatinine 1.37 H (0.66-1.25) mg/dL Glucose 151 H (74-99) mg/dL Plasma Lactic Acid Luis Alberto 2.5 H* (0.7-2.0) mmol/L Total Bilirubin 1.8 H (0.2-1.3) mg/dL AST 139 H (17-59) U/L ALT 151 H (4-49) U/L Troponin I 0.083 H* (0.000-0.034) ng/mL Total Protein (6.3-8.2) g/dL Albumin (3.5-5.0) g/dL HDL Cholesterol (40.00-60.00) mg/dL Lipase 322 H (23-300) U/L Urine Protein (Negative) Urine Blood (Negative) Hyaline Casts (0-2) /lpf Urine Mucus (None) /hpf 01/08/22 01/08/22 01/08/22 Range/Units 13:59 14:46 17:04 WBC (3.8-10.6) k/uL RBC (4.30-5.90) m/uL Neutrophils # (1.3-7.7) k/uL Lymphocytes # (1.0-4.8) k/uL PT (9.0-12.0) sec INR (<1.2) APTT (22.0-30.0) sec Sodium (137-145) mmol/L Chloride (98-107) mmol/L Carbon Dioxide (22-30) mmol/L BUN (9-20) mg/dL Creatinine (0.66-1.25) mg/dL Glucose (74-99) mg/dL Plasma Lactic Acid Luis Alberto 2.1 H* (0.7-2.0) mmol/L Total Bilirubin (0.2-1.3) mg/dL AST (17-59) U/L ALT (4-49) U/L Troponin I 0.092 H* 0.099 H* (0.000-0.034) ng/mL Total Protein (6.3-8.2) g/dL Albumin (3.5-5.0) g/dL HDL Cholesterol (40.00-60.00) mg/dL Lipase (23-300) U/L Urine Protein (Negative) Urine Blood (Negative) Hyaline Casts (0-2) /lpf Urine Mucus (None) /hpf 01/08/22 01/09/22 01/09/22 Range/Units 17:20 02:49 02:49 WBC (3.8-10.6) k/uL RBC 4.26 L (4.30-5.90) m/uL Neutrophils # 7.9 H (1.3-7.7) k/uL Lymphocytes # (1.0-4.8) k/uL PT (9.0-12.0) sec INR (<1.2) APTT (22.0-30.0) sec Sodium 133 L (137-145) mmol/L Chloride (98-107) mmol/L Carbon Dioxide (22-30) mmol/L BUN 22 H (9-20) mg/dL Creatinine 1.57 H (0.66-1.25) mg/dL Glucose 100 H (74-99) mg/dL Plasma Lactic Acid Luis Alberto 2.2 H* (0.7-2.0) mmol/L Total Bilirubin (0.2-1.3) mg/dL AST 107 H (17-59) U/L ALT 140 H (4-49) U/L Troponin I (0.000-0.034) ng/mL Total Protein 5.6 L (6.3-8.2) g/dL Albumin 3.1 L (3.5-5.0) g/dL HDL Cholesterol 24.00 L (40.00-60.00) mg/dL Lipase 395 H (23-300) U/L Urine Protein (Negative) Urine Blood (Negative) Hyaline Casts (0-2) /lpf Urine Mucus (None) /hpf 01/09/22 Range/Units 02:49 WBC (3.8-10.6) k/uL RBC (4.30-5.90) m/uL Neutrophils # (1.3-7.7) k/uL Lymphocytes # (1.0-4.8) k/uL PT (9.0-12.0) sec INR (<1.2) APTT 36.8 H (22.0-30.0) sec Sodium (137-145) mmol/L Chloride (98-107) mmol/L Carbon Dioxide (22-30) mmol/L BUN (9-20) mg/dL Creatinine (0.66-1.25) mg/dL Glucose (74-99) mg/dL Plasma Lactic Acid Luis Alberto (0.7-2.0) mmol/L Total Bilirubin (0.2-1.3) mg/dL AST (17-59) U/L ALT (4-49) U/L Troponin I (0.000-0.034) ng/mL Total Protein (6.3-8.2) g/dL Albumin (3.5-5.0) g/dL HDL Cholesterol (40.00-60.00) mg/dL Lipase (23-300) U/L Urine Protein (Negative) Urine Blood (Negative) Hyaline Casts (0-2) /lpf Urine Mucus (None) /hpf Diabetes panel 01/08/22 01/09/22 Range/Units 11:54 02:49 Sodium 131 L 133 L (137-145) mmol/L Potassium 4.3 4.7 (3.5-5.1) mmol/L Chloride 97 L 98 (98-107) mmol/L Carbon Dioxide 19 L 24 (22-30) mmol/L BUN 20 22 H (9-20) mg/dL Creatinine 1.37 H 1.57 H (0.66-1.25) mg/dL Glucose 151 H 100 H (74-99) mg/dL Calcium 8.7 8.7 (8.4-10.2) mg/dL AST 139 H 107 H (17-59) U/L ALT 151 H 140 H (4-49) U/L Alkaline Phosphatase 73 66 (38-126) U/L Total Protein 6.3 5.6 L (6.3-8.2) g/dL Albumin 3.6 3.1 L (3.5-5.0) g/dL Triglycerides 78.20 (0.00-149.00) mg/dL HDL Cholesterol 24.00 L (40.00-60.00) mg/dL Calcium panel 01/08/22 01/09/22 Range/Units 11:54 02:49 Calcium 8.7 8.7 (8.4-10.2) mg/dL Albumin 3.6 3.1 L (3.5-5.0) g/dL Pituitary panel 01/08/22 01/09/22 Range/Units 11:54 02:49 Sodium 131 L 133 L (137-145) mmol/L Potassium 4.3 4.7 (3.5-5.1) mmol/L Chloride 97 L 98 (98-107) mmol/L Carbon Dioxide 19 L 24 (22-30) mmol/L BUN 20 22 H (9-20) mg/dL Creatinine 1.37 H 1.57 H (0.66-1.25) mg/dL Glucose 151 H 100 H (74-99) mg/dL Calcium 8.7 8.7 (8.4-10.2) mg/dL Adrenal panel 01/08/22 01/09/22 Range/Units 11:54 02:49 Sodium 131 L 133 L (137-145) mmol/L Potassium 4.3 4.7 (3.5-5.1) mmol/L Chloride 97 L 98 (98-107) mmol/L Carbon Dioxide 19 L 24 (22-30) mmol/L BUN 20 22 H (9-20) mg/dL Creatinine 1.37 H 1.57 H (0.66-1.25) mg/dL Glucose 151 H 100 H (74-99) mg/dL Calcium 8.7 8.7 (8.4-10.2) mg/dL Total Bilirubin 1.8 H 1.2 (0.2-1.3) mg/dL AST 139 H 107 H (17-59) U/L ALT 151 H 140 H (4-49) U/L Alkaline Phosphatase 73 66 (38-126) U/L Total Protein 6.3 5.6 L (6.3-8.2) g/dL Albumin 3.6 3.1 L (3.5-5.0) g/dL
--- NOTE | 2022-01-09 16:29 | US ---
EXAMINATION TYPE: US abdomen limited DATE OF EXAM: 01/09/2022 COMPARISON: NONE CLINICAL HISTORY: assess for fluid pocket please. Abdominal distention and pressure No significant fluid pocket seen on today's exam, Trace fluid seen in RUQ area IMPRESSION: Trace ascites visualized around the liver.
--- NOTE | 2022-01-10 04:08 | PN ---
PROGRESS NOTE SUBJECTIVE: This is a 46-year-old gentleman who was admitted with abdominal pain as well as ascites and chronic liver disease, has elevated troponin also. The patient has been closely monitored. The patient had a CT scan of the abdomen that showed ascites. Interventional Radiology consultation has been planned. No chest pain. No palpitations. PAST MEDICAL HISTORY: Reviewed. REVIEW OF SYSTEMS: A 14-point review of systems is negative except as mentioned earlier. CURRENT MEDICATIONS: Reviewed include heparin, dose and rest of medications reviewed. PHYSICAL EXAMINATION: VITAL SIGNS: Pulse is 85, blood pressure 139/97, respirations 17. HEENT: Conjunctivae normal. NECK: No JVD. CARDIOVASCULAR: Breath sounds diminished at the bases. A few scattered rhonchi. ABDOMEN: Soft, obese, ascites, minimal. LABS: Noted. Creatinine is 1.57. Other labs are noted. TSH is 4.794. ASSESSMENT: 1. Abdominal pain, possible ascites and chronic liver disease, possibly acute hepatitis. 2. Possible acute pancreatitis, mild. 3. Remote history of ETOH. 4. Troponin 0.099. 5. Accelerated hypertension, hypertensive urgency. 6. Gastroesophageal reflux disease. RECOMMENDATIONS AND DISCUSSION: I recommend to continue current management and symptomatic treatment. Interventional Radiology for ascitic tap. Closely follow with Cardiology. Guarded prognosis. We will recommend repeat labs. The patient has multiple complex medical issues and discussed with the patient. Further recommendations to follow. Alcohol cessation. MMODL / IJN: [id number] /
[2022-01-10 08:01] LABS: Platelet Count 283 k/uL (150-450)
[2022-01-10 08:34] LABS: Albumin 2.7 g/dL (3.5-5.0); Calcium 8.3 mg/dL (8.4-10.2); Total Bilirubin 0.6 mg/dL (0.2-1.3); Total Protein 5.2 g/dL (6.3-8.2)
[2022-01-10] MEDS: PANTOPRAZOLE 40 MG/10 ML VIAL IVP SCH ×2 (09:26→19:59)
[2022-01-10] MEDS: VALSARTAN 80 MG TAB PO SCH (09:26)
[2022-01-10] MEDS: carvediloL 12.5 MG TAB PO SCH ×2 (09:26→15:49)
[2022-01-10] MEDS: ASPIRIN 81 MG PO SCH (09:26)
--- NOTE | 2022-01-10 12:19 | P.PN ---
Progress Note - Text Progress Note Date: 01/10/22 Patient [place] stable. He denies any significant abdominal pain. We will plan for outpatient colonoscopy when medically stable.
--- NOTE | 2022-01-10 13:15 | P.PN ---
Subjective This is a pleasant 46-year-old male past medical history significant for hypertension, former cigarette smoker quit 20+ years ago, alcohol use (former heavy alcohol use, now drinks about 6 beers/week), former prescription drug abuse quit 10 years ago. 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 We have been asked to see in consultation for elevated troponin, hypertension emergency. Patient presents emergency department with complaint of abdominal discomfort, abdominal bloating and distention, states he noticed it worsening over the past 2-3 days. He does endorse some mild shortness of breath with movement/activities which he attributes to his abdominal discomfort and being sedentary. He denies any chest pain, palpitations, lightheadedness, dizziness, syncope or near syncope. He denies any symptoms of orthopnea or PND, or LE edema. He denies any history of TX, Stroke, CAD, Diabetes, dyslipidemia, or kidney disease. Family history includes father had an TX in his late 50s with stent placements. States his mother's side of the family has a history of MIs in the past. On admission, patient was found to be hypertensive with SBP 160s-200s, also sinus tachycardic with HR 120s. 01/10 Patient seen and examined at bedside, neck distress. His symptoms have improved. He denies any chest pain or shortness of breath. His blood pressure is improved. BP 129/87, heart rate 80, afebrile, oxygen saturation 96% on room air. Echocardiogram revealed an EF of 30%, severe LVH, small pericardial effusion without evidence of tamponade He is currently maintained on amlodipine 10 mg daily, valsartan 180 mg daily, labetalol 100mg BID Labs, sodium 133, potassium 4.0, BUN 21, serum creatinine 1.48, triglycerides 78, cholesterol 138, LDL 98, HDL 24 PHYSICAL EXAMINATION Vitals reviewed CONSTITUTIONAL: No apparent distress. HEENT: Head is normocephalic. Pupils are equal, round. Sclerae anicteric. Mucous membranes of the mouth are moist. No JVD. CHEST EXAMINATION: Lungs are clear to auscultation. No chest wall tenderness is noted on palpation or with deep breathing. HEART EXAMINATION: Regular rate and rhythm. S1, S2 heard. No murmurs, gallops or rub. ABDOMEN: Distended, non-tender. Positive bowel sounds. EXTREMITIES: 2+ peripheral pulses, no lower extremity edema and no calf tenderness. NEUROLOGIC EXAMINATION: Patient is awake, alert and oriented x3. ASSESSMENT Hypertensive urgency Cardiomyopathy, ischemic vs non-ischemic Elevated troponin, likely secondary to above Abdominal discomfort, bloating, distention Elevated liver enzymes Elevated lipase Lactic acidosis Acute kidney injury Sinus tachycardia Former nicotine dependence Former alcohol abuse Family history of coronary artery disease PLAN Stop amlodipine Transition to Carvedilol 12.5mg BID Continue valsartan 80 mg daily Monitor renal function and electrolytes Hold off on atorvastatin secondary to abnormal liver enzymes Hold off on starting spironolactone secondary to kidney function Do not recommend cardiac catheterization at this time secondary to renal f unction, this can be completed as an outpatient Continue to monitor for additional 24 hours. Further recommendations based on clinical course Nurse practitioner note has been reviewed by physician. Signing provider agrees with the documented findings, assessment, and plan of care. Objective - Vital Signs Vital signs: Vital Signs Temp 97.9 F 01/10/22 12:00 Pulse 80 01/10/22 12:00 Resp 18 01/10/22 12:00 BP 129/87 01/10/22 12:00 Pulse Ox 96 01/10/22 12:00 FiO2 Intake & Output 01/09/22 01/10/22 01/10/22 18:59 06:59 18:59 Intake Total 4120 10 Balance 4120 10 Intake: IV 10 10 Invasive Line 1 10 10 Oral 1830 Tube Feeding 2280 Other: Voiding Method Toilet Toilet # Voids 4 1 1 - Labs CBC & Chem 7: 01/10/22 07:34 01/10/22 07:34 Labs: Abnormal Lab Results - Last 24 Hours (Table) 01/09/22 01/10/22 Range/Units 09:34 07:34 Sodium 133 L (137-145) mmol/L BUN 21 H (9-20) mg/dL Creatinine 1.48 H (0.66-1.25) mg/dL Glucose 108 H (74-99) mg/dL Hemoglobin A1c 6.6 H (0.0-6.0) % Calcium 8.3 L (8.4-10.2) mg/dL ALT 104 H (4-49) U/L Total Protein 5.2 L (6.3-8.2) g/dL Albumin 2.7 L (3.5-5.0) g/dL
[2022-01-11 04:54] LABS: Basophils % (A) 1 %; Eosinophils # (A) 0.2 k/uL (0-0.7); Eosinophils % (A) 2 %; HCT 39.9 % (39.0-53.0); HGB 12.4 gm/dL (13.0-17.5); Hypochromasia Marked; Lymphocytes # (A) 1.1 k/uL (1.0-4.8); Lymphocytes % (A) 12 %; MCH 30.2 pg (25.0-35.0); MCV 97.6 fL (80.0-100.0); Mean Platelet Volume 8.2; Monocytes # (A) 0.6 k/uL (0-1.0); Monocytes % (A) 7 %; Neutrophils # (A) 6.6 k/uL (1.3-7.7); Neutrophils % (A) 76 %; Platelet Count 324 k/uL (150-450); RBC 4.09 m/uL (4.30-5.90); RDW 14.7 % (11.5-15.5); WBC 8.7 k/uL (3.8-10.6)
--- NOTE | 2022-01-11 05:06 | PN ---
PROGRESS NOTE HISTORY OF PRESENT ILLNESS: This is a 46-year-old gentleman who was admitted with abdominal pain and possible ascites, also had acute pancreatitis, multiple consults following the patient. No chest pain, no palpitations, no fever. PHYSICAL EXAMINATION: VITAL SIGNS: Pulse is 80, blood pressure 128/70, and respirations 18. CHEST: Clear to auscultation. CARDIOVASCULAR: S1, S2 muffled. ABDOMEN: Soft. No guarding, no masses. LEGS: No edema. NERVOUS SYSTEM: No focal deficit. LABS: Creatinine 1.4, rest of the labs are reviewed. ASSESSMENT: 1. Abdominal pain, possibly ascites and chronic liver disease, possibly acute hepatitis. 2. Possible acute pancreatitis, mild. 3. Remote history of ethyl alcohol. 4. Troponin 0.09, indeterminate. 5. Accelerated hypertension and hypertensive urgency. 6. Chronic kidney disease, stage 3. 7. GERD. Recommended to continue current management and treatment. Repeat labs in the morning. Closely follow with Cardiology and surgery. 8. Guarded prognosis. Further recommendations to follow. MMODL / IJN: [id number] /
[2022-01-11 05:13] LABS: Albumin 2.9 g/dL (3.5-5.0); Calcium 8.4 mg/dL (8.4-10.2); Potassium 4.4 mmol/L (3.5-5.1); Total Bilirubin 0.6 mg/dL (0.2-1.3); Total Protein 5.2 g/dL (6.3-8.2)
[2022-01-11] MEDS: carvediloL 12.5 MG TAB PO SCH (06:38)
[2022-01-11] MEDS: VALSARTAN 80 MG TAB PO SCH (09:19)
[2022-01-11] MEDS: PANTOPRAZOLE 40 MG/10 ML VIAL IVP SCH (09:19)
[2022-01-11] MEDS: ASPIRIN 81 MG PO SCH (09:19)
--- NOTE | 2022-01-11 12:33 | P.PN ---
Progress Note - Text Progress Note Date: 01/11/22 Patient remains stable. He denies any evidence of GI bleed. His abdomen is soft nontender. We will plan for outpatient colonoscopy once patient's general medical condition is improved.
[2022-01-11 12:42] VITALS: BP 141/105; PULSE 77; RESP 17; TEMP 98.2
[2022-01-11 13:26] VITALS: BMI 51.4
--- NOTE | 2022-01-11 14:04 | P.PN ---
Subjective This is a pleasant 46-year-old male past medical history significant for hypertension, former cigarette smoker quit 20+ years ago, alcohol use (former heavy alcohol use, now drinks about 6 beers/week), former prescription drug abuse quit 10 years ago. 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 We have been asked to see in consultation for elevated troponin, hypertension emergency. Patient presents emergency department with complaint of abdominal discomfort, abdominal bloating and distention, states he noticed it worsening over the past 2-3 days. He does endorse some mild shortness of breath with movement/activities which he attributes to his abdominal discomfort and being sedentary. He denies any chest pain, palpitations, lightheadedness, dizziness, syncope or near syncope. He denies any symptoms of orthopnea or PND, or LE edema. He denies any history of VT, Stroke, CAD, Diabetes, dyslipidemia, or kidney disease. Family history includes father had an VT in his late 50s with stent placements. States his mother's side of the family has a history of MIs in the past. On admission, patient was found to be hypertensive with SBP 160s-200s, also sinus tachycardic with HR 120s. 01/11 Patient seen and examined at bedside, no acute distress. His symptoms have improved. He denies any chest pain or shortness of breath. He complains of abdominal bloating. His blood pressure trends have improved. His renal function is improving. Echocardiogram revealed an EF of 30%, severe LVH, small pericardial effusion without evidence of tamponade Labs, sodium 131, potassium 4.4, BUN 21, serum creatinine 1.37. PHYSICAL EXAMINATION Vitals reviewed CONSTITUTIONAL: No apparent distress. HEENT: Head is normocephalic. Pupils are equal, round. Sclerae anicteric. Mucous membranes of the mouth are moist. No JVD. CHEST EXAMINATION: Lungs are clear to auscultation. No chest wall tenderness is noted on palpation or with deep breathing. HEART EXAMINATION: Regular rate and rhythm. S1, S2 heard. No murmurs, gallops or rub. ABDOMEN: Distended, non-tender. Positive bowel sounds. EXTREMITIES: 2+ peripheral pulses, no lower extremity edema and no calf tenderness. NEUROLOGIC EXAMINATION: Patient is awake, alert and oriented x3. ASSESSMENT Hypertensive urgency Cardiomyopathy, ischemic vs non-ischemic Elevated troponin, likely secondary to above Abdominal discomfort, bloating, distention Type 2 diabetes, Hgb A1C 6.6 Elevated liver enzymes Elevated lipase Lactic acidosis Acute kidney injury Sinus tachycardia Former nicotine dependence Former alcohol abuse Family history of coronary artery disease PLAN Continue Carvedilol 12.5mg BID Continue valsartan 80 mg daily Monitor renal function as outpatient Hold off on atorvastatin secondary to abnormal liver enzymes Hold off on starting spironolactone secondary to kidney function Do not recommend cardiac catheterization at this time secondary to renal function, this can be completed as an outpatient From cardiology perspective, patient stable for discharge home. Follow up outpatient 12 weeks Nurse practitioner note has been reviewed by physician. Signing provider agrees with the documented findings, assessment, and plan of care. Objective - Vital Signs Vital signs: Vital Signs Temp 98.0 F 01/11/22 04:00 Pulse 78 01/11/22 04:00 Resp 18 01/11/22 04:00 BP 145/102 01/11/22 04:00 Pulse Ox 97 01/11/22 04:00 FiO2 Intake & Output 01/10/22 01/11/22 01/11/22 18:59 06:59 18:59 Intake Total 10 Balance 10 Intake: IV 10 Invasive Line 1 10 Other: Voiding Method Toilet # Voids 1 2 - Labs CBC & Chem 7: 01/11/22 04:12 01/11/22 04:12 Labs: Abnormal Lab Results - Last 24 Hours (Table) 01/10/22 01/11/22 01/11/22 Range/Units 07:34 04:12 04:12 RBC 4.09 L (4.30-5.90) m/uL Hgb 12.4 L (13.0-17.5) gm/dL Sodium 133 L 131 L (137-145) mmol/L Chloride 97 L (98-107) mmol/L BUN 21 H 21 H (9-20) mg/dL Creatinine 1.48 H 1.37 H (0.66-1.25) mg/dL Glucose 108 H 108 H (74-99) mg/dL Calcium 8.3 L (8.4-10.2) mg/dL ALT 104 H 92 H (4-49) U/L Total Protein 5.2 L 5.2 L (6.3-8.2) g/dL Albumin 2.7 L 2.9 L (3.5-5.0) g/dL
--- NOTE | 2022-01-12 13:18 | CDI ---
Documentation Clarification Form Date: 01/12/22 From: Danya Marrufo Admit Date: 01/08/2022 01:31:00 PM Patient Name: Jasen Hernandez Visit Number: [id number] Discharge Date: 01/11/2022 04:49:00 PM ATTENTION: The Clinical Documentation Specialists (CDI) and [facility] Coding Staff appreciate your assistance in clarifying documentation. Please respond to the clarification below the line at the bottom and electronically sign. The CDI & [facility] Coding staff will review the response and follow-up if needed. Please note: Queries are made part of the Legal Health Record. If you have any questions, please contact the author of this message via ITS. Dr. Valarie Guerrero, Your patient has the documented symptom of abdominal pain in ED Note, H&P, consults and multiple progress notes. Additional clarification regarding the etiology/cause of this symptom is requested. Patient history/risk factors: The patient is complaining of abdominal pain which is rather diffuse in nature. Blood pressure found to be extremely elevated at 194/134. Clinical Indicators: hx of alcohol abuse ABDPELV: 1.No acute intra-abdominal process appreciated. 2.Findings as noted above may reflect developing anasarca. Labs: lactic acid 2.5, lipase 322/395, amylase 36/35 Vital Signs: T 98.4, P 127, R 22, BP 212/176, Treatment: IV fluids, IP Dilaudid Please provide additional clarification regarding the etiology/cause of the abdominal pain: [ ] Abdominal pain due to ascites [ ] Abdominal pain due to acute hepatitis [ ] Abdominal pain due to acute pancreatitis [ ] Abdominal pain due to chronic liver disease [ x ] Other, please specify _refer to the note MTDD
== END 2022-01-11 16:49 | disposition home or self-care (01) | DRG 439 ==
LOC: EC 10:57 → 3SCARD 13:31
PROVIDERS: ADMIT Internal Medicine; ATTEND Internal Medicine
DX: K85.90 Acute pancreatitis without necrosis or infection, unspecified (principal); B17.9 Acute viral hepatitis, unspecified; E87.2 Acidosis; R18.8 Other ascites; I16.1 Hypertensive emergency; N17.9 Acute kidney failure, unspecified; I42.9 Cardiomyopathy, unspecified; I31.3 Pericardial effusion (noninflammatory); E11.22 Type 2 diabetes mellitus with diabetic chronic kidney disease; N18.30 Chronic kidney disease, stage 3 unspecified; I12.9 Hypertensive chronic kidney disease with stage 1 through stage 4 chronic kidney disease, or unspecified chronic kidney disease; Z28.310 Unvaccinated for COVID-19; K76.9 Liver disease, unspecified; K21.9 Gastro-esophageal reflux disease without esophagitis; R77.8 Other specified abnormalities of plasma proteins; F10.11 Alcohol abuse, in remission; Z87.891 Personal history of nicotine dependence; Z82.49 Family history of ischemic heart disease and other diseases of the circulatory system
CPT/HCPCS: 36415; 74177; 76705; 80053; 80061; 81001; 82150; 83036; 83605; 83690; 83880; 84439; 84443; 84484; 85025; 85049; 85610; 85730; 93005; 93306; 96365; 96366; 96375; 96376; 99285

== ENCOUNTER → 2022-01-16 | Outpatient (CLI) | payer BC | END | disposition home or self-care (01) | LOC: LABWHC1 12:23 | PROVIDERS: ATTEND Registered Nurse | DX: I50.9 Heart failure, unspecified (principal); R94.4 Abnormal results of kidney function studies | CPT/HCPCS: 36415; 80048 ==

== ENCOUNTER → 2022-01-19 | Outpatient (CLI) | payer BC ==
[2022-01-19 18:35] LABS: African American GFR (CKD) 75.8 (60.0-200.0); Anion Gap 13.8 mmol/L (10.00-18.00); BUN/Creat Ratio 14.69 Ratio (12.00-20.00); Blood Urea Nitrogen 19.1 mg/dL (9.0-27.0); Carbon Dioxide 25.2 mmol/L (20.0-27.5); Non-African American GFR(CKD) 65.4 (60.0-200.0); Potassium 4.2 mmol/L (3.5-5.5)
== END | disposition home or self-care (01) ==
LOC: LABWHC1 09:32
PROVIDERS: ATTEND Registered Nurse
DX: I50.9 Heart failure, unspecified (principal); R94.4 Abnormal results of kidney function studies
CPT/HCPCS: 36415; 80048